=== PATIENT | male | born 1980 | race Caucasian/White ===

== ENCOUNTER 2018-08-18 23:25 | Emergency (ER) | payer OTHER ==
[~2018-08-18] VITALS: Ht 160 cm; Wt 64.2 kg
[2018-08-18 23:27] VITALS: BP 135/83
[2018-08-19] MEDS ORDERED: LIDOCAINE-MPF 1%, 5ML INFIL ONE
[2018-08-19] MEDS ORDERED: IBUPROFEN 600 MG TABLET PO ONE
[2018-08-19] MEDS ORDERED: DIPH,PERTUSS(ACELL),TET VAC/PF 0.5 ML IM-VACC ONE ×2 (00:20)
[2018-08-19] MEDS ORDERED: IBUPROFEN 600 MG TABLET ONE (00:20)
[2018-08-19] MEDS ORDERED: LIDOCAINE-MPF 1%, 5ML ONE (00:34)
[2018-08-19] MEDS ORDERED: BACITRACIN ZINC OINT 500U/GM, 0.9 GM ONE (01:36)
== END 2018-08-19 01:47 | disposition home or self-care (01) ==
LOC: ED 08-19 01:41
DX: S61.214A Laceration without foreign body of right ring finger without damage to nail, initial encounter (principal); F17.200 Nicotine dependence, unspecified, uncomplicated; W45.8XXA Other foreign body or object entering through skin, initial encounter; Y93.89 Activity, other specified; Y92.89 Other specified places as the place of occurrence of the external cause; Y99.8 Other external cause status
CPT/HCPCS: 12041; 90471; 90715